=== PATIENT | female | born 1950 | race Caucasian/White ===

== ENCOUNTER → 2020-12-09 | Outpatient (CLI) | payer MEDICARE, OTHER ==
[~2020-12-09] MED LIST: COLACE 100MG C100 MG PO; CYANOCOBAL1000 MCG/1 SQ; EFFEXOR XR75 MG PO; ENDOCET 10-3251 EACH PO; GABAPENTIN800 MG PO; HYDROCODON-ACE1 EAC4 PO; LANTUS100 UNIT/1 SQ; LEVOTHYROXINE50 MCG PO; LISINOPRIL10 MG PO; NAPROSYN EC 50500 MG PO; PROGESTERONE200 MG PO; PROZAC 10 MG CA10 MG PO
[2020-12-09 11:43] LABS: HEMOGLOBIN 15.2 gm/dl (12.3-15.3); RED BLOOD COUNT 5.11 M/UL (4.00-5.10); WHITE BLOOD COUNT 6.2 K/UL (4.5-11.0)
[2020-12-09 12:08] LABS: BUN/CREATININE RATIO 17 (0-10)
== END ==
LOC: OPSV2 10:30
PROVIDERS: Obstetrics & Gynecology
DX: Z01.812 Encounter for preprocedural laboratory examination (principal); N81.6 Rectocele
CPT/HCPCS: 36415; 80053; 81001; 83036; 85027

== ENCOUNTER 2020-12-16 11:07 | Day surgery (SDC) | payer MEDICARE, OTHER ==
[~2020-12-16] VITALS: Ht 170.2 cm; Wt 47.6 kg
[~2020-12-16 11:07] MED LIST changes: -COLACE 100MG C100 MG PO; -EFFEXOR XR75 MG PO; -HYDROCODON-ACE1 EAC4 PO; -NAPROSYN EC 50500 MG PO
[2020-12-16] MEDS ORDERED: EFFEXOR XR75 MG PO (12:06)
[2020-12-16] MEDS ORDERED: NAPROSYN EC 50500 MG PO (15:18)
[2020-12-16] MEDS ORDERED: HYDROCODON-ACE1 EAC4 PO (15:18)
[2020-12-16] MEDS ORDERED: COLACE 100MG C100 MG PO (15:18)
--- NOTE | 2020-12-16 23:25 | NUR ---
Patient voided for the first time after surgery at [id number]
[2020-12-17 05:46] LABS: HEMOGLOBIN 14.2 gm/dl (12.3-15.3)
== END 2020-12-17 08:47 | disposition home or self-care (01) ==
LOC: OR 11:07 → MED SURG 4 18:57 → OR 12-17 08:47
PROVIDERS: Obstetrics & Gynecology
DX: N81.5 Vaginal enterocele (principal); N81.6 Rectocele; E10.42 Type 1 diabetes mellitus with diabetic polyneuropathy; E03.9 Hypothyroidism, unspecified; F41.9 Anxiety disorder, unspecified; F32.9 Major depressive disorder, single episode, unspecified; E78.5 Hyperlipidemia, unspecified; I10 Essential (primary) hypertension; K21.9 Gastro-esophageal reflux disease without esophagitis; K58.9 Irritable bowel syndrome, unspecified; Z87.891 Personal history of nicotine dependence; Z79.899 Other long term (current) drug therapy; Z20.822 Contact with and (suspected) exposure to COVID-19
CPT/HCPCS: 36415; 82962; 85014; 85018; C1769; J0690; J1100; J2270; J2405; J2704; J2710; J3010; J7120; U0002